=== PATIENT | male | born 1960 | race Caucasian/White ===

== ENCOUNTER → 2023-12-22 | Outpatient (REF) | payer BC | LOC: M SFHCDERM 16:39 | PROVIDERS: ATTEND Nurse Practitioner Family | DX: C44.519 Basal cell carcinoma of skin of other part of trunk (principal) ==

== ENCOUNTER → 2025-08-23 | Outpatient (REF) | payer BC | LOC: M SFHCDERM 13:26 | PROVIDERS: ATTEND Nurse Practitioner Family | DX: B07.9 Viral wart, unspecified (principal); L57.0 Actinic keratosis ==